=== PATIENT | female | born 1970 | race Caucasian/White ===

== ENCOUNTER 2017-06-10 19:35 | Emergency (ER) | payer MEDICAID ==
[~2017-06-10] VITALS: Ht 162.6 cm; Wt 73.5 kg
[2017-06-10] MEDS ORDERED: HYDROmorphone HCL 2 MG/ML VL IV ONE (20:45)
[2017-06-10] MEDS ORDERED: ONDANSETRON HCL 4 MG/2 ML VIAL IV ONE (20:45)
[2017-06-10 22:23] VITALS: BP 138/91
[2017-06-10] MEDS ORDERED: HYDROcodone-ACET 10/325MG TAB PO ONE (23:45)
== END 2017-06-10 23:57 | disposition home or self-care (01) ==
LOC: EDBD 19:35 → ER 19:35
DX: S52.571A Other intraarticular fracture of lower end of right radius, initial encounter for closed fracture (principal); W19.XXXA Unspecified fall, initial encounter; Y93.21 Activity, ice skating; Y92.89 Other specified places as the place of occurrence of the external cause; Y99.8 Other external cause status
CPT/HCPCS: 29125; 73110; 96374; 96375; 99284; J1170; J2405; J7030

== ENCOUNTER → 2020-03-14 | Outpatient (CLI) | payer OTHER | END | disposition home or self-care (01) | LOC: LAB 10:50 | PROVIDERS: ATTEND Preventive Medicine Preventive Medicine/Occupational Environmental Medicine | DX: Z02.1 Encounter for pre-employment examination (principal) | CPT/HCPCS: 36415; 86706; 86735; 86762; 86765; 86787 ==

== ENCOUNTER 2022-07-17 18:14 | Emergency (ER) | payer MEDICAID ==
[~2022-07-17] VITALS: Ht 162.6 cm; Wt 78.5 kg
[2022-07-17] MEDS ORDERED: cloNIDine 0.2 mg/24hr 7DAY PATCH TD ONE (20:45)
[2022-07-17 21:01] LABS: Basophils # (auto) 0.2 10 ^3/uL (0-0.2); Basophils % (auto) 1.3 % (0.0-2.0); Eosinophils # (auto) 0.1 10 ^3/uL (0-0.8); Eosinophils % (auto) 0.6 % (0.0-7.0); Hematocrit 42.7 % (36.0-46.0); Hemoglobin 14.6 g/dL (12.2-16.2); Lymphocytes # (auto) 3.8 10 ^3/uL (0.4-5.4); Lymphocytes % (auto) 30.3 % (10.0-50.0); Mean Corpuscular Hemoglobin 31.2 pg (28.0-32.0); Mean Corpuscular Hgb Conc. 34.1 g/dL (32.0-36.0); Mean Corpuscular Volume 91.5 fL (80.0-100.0); Monocytes # (auto) 1.2 10 ^3/uL (0-1.3); Monocytes % (auto) 9.2 % (0.0-12.0); Neutrophils # (auto) 7.4 10 ^3/uL (1.6-8.6); Neutrophils % (auto) 58.6 % (37.0-80.0); Nucleated Red Blood Cells % 0.2 %; Red Blood Cells 4.67 10^6/uL (4.0-5.20); Red Cell Distribution Width 13.5 % (11.8-14.3); White Blood Cell 12.6 10^3/uL (4.4-10.8)
[2022-07-17 21:21] LABS: Albumin 4.3 g/dL (3.4-5.0); Potassium 3.5 mmol/L (3.5-5.1)
[2022-07-17 21:25] LABS: Total Protein 8.2 g/dL (6.4-8.2)
[2022-07-17 21:30] LABS: Urine Bacteria NONE SEEN /hpf (None Seen); Urine Blood Negative /uL (Negative); Urine Specific Gravity 1.002 (1.001-1.035); Urine WBC 1 /hpf (0 - 5)
[2022-07-17 22:15] VITALS: BP 154/91
[2022-07-17] MEDS ORDERED: CLON0.1T PO (22:20)
== END 2022-07-17 22:41 | disposition home or self-care (01) ==
LOC: ER 18:14
DX: I10 Essential (primary) hypertension (principal); Z87.891 Personal history of nicotine dependence; Z88.2 Allergy status to sulfonamides
CPT/HCPCS: 36415; 80053; 81001; 85025; 93005

== ENCOUNTER 2024-03-27 06:51 | Day surgery (SDC) | payer MEDICAID ==
[~2024-03-27] VITALS: Ht 162.6 cm; Wt 61.2 kg
[2024-03-27] VITALS (9 sets, daily range): BP systolic 122–143; BP diastolic 82–95; PULSE 60–76; RESP 12–17; TEMP 98; O2SAT 94–100
[~2024-03-27 06:51] MED LIST: ADAL40KI SC; CETI-195 PO; HYDRX10T PO; IBUP-1456 PO; LAMO100T44 PO; TRAZ-228 PO
[2024-03-27] MEDS ORDERED: fentaNYL CITRATE 100 MCG/2 ML VL IV ONE ×2 (07:45→08:15)
[2024-03-27] MEDS ORDERED: MIDAZOLAM HCL 2MG/2ML 2ml VIAL (1mg/ml) IV ONE ×2 (07:45→08:15)
[2024-03-27] MEDS ORDERED: LIDOCAINE VISCOUS 2% 15ML UD PO ONE ×2 (07:45→08:15)
[2024-03-27] MEDS ORDERED: MIDAZOLAM HCL 2MG/2ML 2ml VIAL (1mg/ml) ONE (08:23)
== END 2024-03-27 09:45 | disposition home or self-care (01) ==
LOC: CATH 06:51
PROVIDERS: ATTEND Internal Medicine Cardiovascular Disease
DX: Q23.81 Bicuspid aortic valve (principal); I08.1 Rheumatic disorders of both mitral and tricuspid valves; Z88.2 Allergy status to sulfonamides; Z88.8 Allergy status to other drugs, medicaments and biological substances; I10 Essential (primary) hypertension; E78.5 Hyperlipidemia, unspecified; Z98.890 Other specified postprocedural states
CPT/HCPCS: 93312; J2250; J3010; J7030; 99152

== ENCOUNTER → 2024-04-02 | Outpatient (CLI) | payer MEDICAID ==
[~2024-04-02] MED LIST changes: +ALBUTEROL SULF 2.5 MG/0.5ML(0.5%) NEB SOLN ONE
--- NOTE | 2024-04-03 16:40 | DVHNC2 ---
Procedure - No obstructive or restrictive ventilatory defect. No significant post-bronchodilator improvement. Noted 120 mL improvement on FEV1. Normal total lung capacity (4.58 L, 93%). Normal DLCO (106%), not correlated with patient's hemoglobin. Decreased RV/TLC ratio (42%). CRYSTAL POTTER MD Apr 03, 2024 16:40
== END | disposition home or self-care (01) ==
LOC: RT 08:42
PROVIDERS: ATTEND Internal Medicine Pulmonary Disease
DX: R06.00 Dyspnea, unspecified (principal); F17.210 Nicotine dependence, cigarettes, uncomplicated
CPT/HCPCS: 94060; 94727; 94729

== ENCOUNTER 2024-05-07 06:44 | Emergency (ER) | payer MEDICAID ==
[~2024-05-07] VITALS: Ht 162.6 cm; Wt 60.6 kg
[~2024-05-07 06:44] MED LIST changes: -ALBUTEROL SULF 2.5 MG/0.5ML(0.5%) NEB SOLN ONE
--- NOTE | 2024-05-07 07:01 | ED.PDOC ---
History of Present Illness HPI Comments 54-year-old female presents with a chief complaint of left-sided facial droop since Tuesday (05/05/2024). Patient mentions that this feels similar to the last time that she had Weatherly Palsy x 20 years ago. Patient has a droop to the upper and lower part of her left face. Patient is able to speak in complete sentences and has no deficits in her upper or lower extremities. No other symptoms or modifying factors present at this time. Chief Complaint: Left Sided Weakness Time Seen by MD: 06:55 Reviewed Notes: Medications, Allergies Allergies: Coded Allergies: Sulfa Antibiotics (Verified Allergy, Unknown, 03/23/24) Uncoded Allergies: STEROIDS (Allergy, Unknown, TACHYCARDIA, 03/23/24) Home Meds Reported Medications Cetirizine HCl (Allergy) 10 Mg Tab, 10 MG PO PRN for ALLERGIES, TAB 03/23/24 Adalimumab (Humira) 40 Mg/0.8 Ml Kit, 40 MG SC EVERY OTHER TUESDAY for PSORIASIS, KIT 03/23/24 Hydroxyzine Hcl (Vistaril) 10 Mg Tb, 10 MG PO PRN for ANXIETY, TAB 03/23/24 Ibuprofen (Ibuprofen) 800 Mg Tab, 800 MG PO PRN for ARTHRITIS, MG 03/23/24 Lamotrigine (Lamotrigine) 100 Mg Tab, 1 TAB PO QPM for BIPOLAR DISORDER, #60 TAB 03/23/24 Trazodone Hcl (Trazodone Hcl) 100 Mg Tab, 100 MG PO QPM for INSOMNIA, MG 03/23/24 Information Source: Patient Mode of Arrival: Ambulatory Severity: Moderate Timing: Days Duration: Since onset Prehospital treatment: None Past Medical History PAST MEDICAL HISTORY: Cancer, Liver Surgical History: Denies all surgeries NOC ENGINEER History: No Pertinent NOC ENGINEER History Family History Family History: Unknown, Family hx of DM, Family hx of HTN Family History (Other): hyperlipidemia Social History Smoker: Non-Smoker, Quit Greater Than 1 Year Alcohol: Denies ETOH Use Drugs: Denies Drug Use, Marijuana Lives In: Home Constitutional: denies: chills, diaphoresis, fatigue, fever, malaise, sweats, weakness, others EENTM: denies: blurred vision, double vision, ear bleeding, ear discharge, ear drainage, ear pain, ear ringing, eye pain, eye redness, hearing loss, mouth pain, mouth swelling, nasal discharge, nose bleeding, nose congestion, nose pain, photophobia, tearing, throat pain, throat swelling, voice changes, others Respiratory: denies: cough, hemoptysis, orthopnea, SOB at rest, shortness of breath, SOB with excertion, stridor, wheezing, others Cardiovascular: denies: chest pain, dizzy spells, diaphoresis, Dyspnea on exertion, edema, irregular heart beat, left arm pain, lightheadedness, palpitations, PND, syncope, others Gastrointestinal: denies: abdomen distended, abdominal pain, blood streaked bowels, constipated, diarrhea, dysphagia, difficulty swallowing, hematemesis, melena, nausea, poor appetite, poor fluid intake, rectal bleeding, rectal pain, vomiting, others Genitourinary: denies: abnormal vagina bleeding, burning, dyspareunia, dysuria, flank pain, frequency, hematuria, incontinence, pain, , vagina discharge, urgency, others Neurological: reports: left sided weakness (LOWER AND UPPER FACIAL DROOP) Physical Exam General Appearance: No Apparent Distress, Normal HEENT: Normal ENT Inspection, Pharynx Normal, TMs Normal Neck: Full Range of Motion, Non-Tender, Normal, Normal Inspection Respiratory: Chest Non-Tender, Lungs Clear, No Accessory Muscle Use, No Respiratory Distress, Normal Breath Sounds Cardiovascular: No Edema, No JVD, No Murmur, No Gallop, Normal Peripheral Pulses, Regular Rate/Rhythm Breast Exam: Deferred Gastrointestinal: No Organomegaly, Non Tender, No Pulsatile Mass, Normal Bowel Sounds, Soft Genitalia: Deferred Pelvic: Deferred Rectal: Deferred Extremities: No calf tenderness, Normal capillary refill, Normal inspection, Normal range of motion, Non-tender, No pedal edema Neurologic: Facial Droop (LEFT UPPER AND LOWER DROOP) Cerebellar Function: Normal Reflexes: Normal Skin: Dry, Normal Color, Warm Lymphatic: No Adenopathy Was a procedure done? 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 Will discharge with steroids, valtrex, and ophtho follow up.) Impression: Primary Impression: Perez's palsy Disposition: HOME / SELF CARE / HOMELESS Condition: Stable Additional Instructions: You have bells palsy. You were prescribed steroids and antivirals. Please take as directed. You should use artificial tears to keep you eye moist and you can tape it shut at night. You should follow up with an Museum Informatics Specialist this week to ensure you are doing well. If your symptoms worsen or you have any other concerns then please return to the ER. e-Prescriptions Valacyclovir Hcl (Valtrex) 1 Gm Tab 1 TAB PO TID for 7 Days, #21 TAB Prov: ADA LEAHY MD 05/07/24 Prednisone (Prednisone) 20 Mg Tab 60 MG PO DAILY for 7 Days, #21 MG Prov: ADA LEAHY MD 05/07/24 Discharged With: Self Critical Care Note Critical Care Time?: No Stability Stability form required: No I personally scribed for ADA LEAHY MD ([email or web address]) on 05/07/24 at 07:01. Electronically submitted by Barry Contreras ([email or web address]). ADA LEAHY MD May 07, 2024 07:01
[2024-05-07] MEDS ORDERED: PRED20TA2 PO (07:08)
[2024-05-07] MEDS ORDERED: VALA1TAB PO (07:08)
[2024-05-07] MEDS: ACYCLOVIR 400 MG TAB PO ONE (07:11)
[2024-05-07] MEDS: predniSONE 20 MG TAB PO ONE (07:12)
[2024-05-07 07:19] VITALS: BP 125/78; PULSE 77; RESP 16; TEMP 98; O2SAT 97
== END 2024-05-07 07:20 | disposition home or self-care (01) ==
LOC: EEVIPCON 06:44 → ER 06:44
DX: G51.0 Bell's palsy (principal); Z88.2 Allergy status to sulfonamides; Z87.891 Personal history of nicotine dependence
CPT/HCPCS: 99283; J7512

== ENCOUNTER → 2024-10-08 | Outpatient (CLI) | payer BC ==
[~2024-10-08] MED LIST changes: +PRED20TA2 PO; +VALA1TAB PO
== END | disposition home or self-care (01) ==
LOC: LAB 12:28
PROVIDERS: ATTEND Nurse Practitioner
DX: J30.2 Other seasonal allergic rhinitis (principal)
CPT/HCPCS: 82785; 86003

== ENCOUNTER 2025-04-04 09:05 | Emergency (ER) | payer BC ==
[~2025-04-04] VITALS: Ht 162.6 cm; Wt 67.3 kg
--- NOTE | 2025-04-04 09:35 | ED.PDOC ---
GI ASSESSMENT HPI Comments A 55 YEAR OLD FEMALE PRESENTS TO THE ED WITH COMPLAINT OF NAUSEA AND VOMITING. PATIENT STATES SHE HAS BEEN EXPERIENCING NAUSEA AND VOMITING WITH A HEADACHE FOR THE PAST 2 DAYS AND HAS BEEN UNABLE TO HOLD ANYTHING DOWN A RESULT. THE PATIENT NOTES THAT SHE HAS A HISTORY OF MIGRAINE HEADACHES. PATIENT DENIES VISION CHANGES, SLURRED SPEECH, ONE-SIDED WEAKNESS, FACIAL DROOP, DYSURIA, HEMATURIA, FLANK PAIN, FEVER, CHILLS, SHORTNESS OF BREATH, CHEST PAIN, ABDOMINAL PAIN, OR OTHER COMPLAINTS. NO OTHER SYMPTOMS OR MODIFYING FACTORS AT THIS TIME. PATIENT IS ALERT, ORIENTED X 4, AND HAS STEADY GAIT. Chief Complaint: Nausea/Vomiting Time Seen by MD: 09:15 Primary Care Provider: Bonita Reviewed Notes: Nurses Notes, Medications, Allergies Allergies: Coded Allergies: Sulfa Antibiotics (Verified Allergy, Unknown, 03/23/24) Uncoded Allergies: STEROIDS (Allergy, Unknown, TACHYCARDIA, 03/23/24) Home Meds Active Scripts Sumatriptan Succinate (Imitrex) 50 Mg Tab, 1 TAB PO BID, #30 TAB 1 Refill Prov:CHANTAL RANDLE 04/04/25 Ondansetron Odt 4MG Tab (ZOFRAN PO) 4 Mg Tb, 4 MG PO BID, #30 TAB ODT TAB-DISSOLVE IN MOUTH, THEN SWALLOW Prov:CHANTAL RANDLE 04/04/25 Valacyclovir Hcl (Valtrex) 1 Gm Tab, 1 TAB PO TID for 7 Days, #21 TAB Prov:ADA LEAHY MD 05/07/24 Prednisone (Prednisone) 20 Mg Tab, 60 MG PO DAILY for 7 Days, #21 MG Prov:ADA LEAHY MD 05/07/24 Reported Medications Cetirizine HCl (Allergy) 10 Mg Tab, 10 MG PO PRN for ALLERGIES, TAB 03/23/24 Adalimumab (Humira) 40 Mg/0.8 Ml Kit, 40 MG SC EVERY OTHER TUESDAY for PSORIASIS, KIT 03/23/24 Hydroxyzine Hcl (Vistaril) 10 Mg Tb, 10 MG PO PRN for ANXIETY, TAB 03/23/24 Ibuprofen (Ibuprofen) 800 Mg Tab, 800 MG PO PRN for ARTHRITIS, MG 03/23/24 Lamotrigine (Lamotrigine) 100 Mg Tab, 1 TAB PO QPM for BIPOLAR DISORDER, #60 TAB 03/23/24 Trazodone Hcl (Trazodone Hcl) 100 Mg Tab, 100 MG PO QPM for INSOMNIA, MG 03/23/24 Information Source: Patient Mode of Arrival: Ambulatory Timing: Days Duration: Since onset, Days Prehospital treatment: None Quality: None Vomitus: Food Particles Stool: Normal Severity: Moderate Recent Hx of: None Pain Location: None Modifying Factors: Nothing Associated sign and symptoms: Nausea, Vomiting Past Medical History PAST MEDICAL HISTORY: Cancer, Liver Past Medical History (Other): MIGRAINE HEADACHE Surgical History: Denies all surgeries LEAD CAREGIVER History: No Pertinent LEAD CAREGIVER History Family History Family History: Reviewed,noncontributory to illness, Family hx of DM, Family hx of HTN Family History (Other): hyperlipidemia Social History Smoker: Non-Smoker, Quit Greater Than 1 Year Alcohol: Denies ETOH Use Drugs: Denies Drug Use, Marijuana Lives In: Home Constitutional: reports: others (ANXIOUS ); denies: chills, diaphoresis, fatigue, fever, malaise, sweats, weakness EENTM: denies: blurred vision, double vision, ear bleeding, ear discharge, ear drainage, ear pain, ear ringing, eye pain, eye redness, hearing loss, mouth pain, mouth swelling, nasal discharge, nose bleeding, nose congestion, nose pain, photophobia, tearing, throat pain, throat swelling, voice changes, others Respiratory: denies: cough, hemoptysis, orthopnea, SOB at rest, shortness of breath, SOB with excertion, stridor, wheezing, others Cardiovascular: denies: chest pain, dizzy spells, diaphoresis, Dyspnea on exertion, edema, irregular heart beat, left arm pain, lightheadedness, palpitations, PND, syncope, others Gastrointestinal: reports: nausea, vomiting; denies: abdomen distended, abdominal pain, blood streaked bowels, constipated, diarrhea, dysphagia, difficulty swallowing, hematemesis, melena, poor appetite, poor fluid intake, re ctal bleeding, rectal pain, others Genitourinary: denies: abnormal vagina bleeding, burning, dyspareunia, dysuria, flank pain, frequency, hematuria, incontinence, pain, , vagina discharge, urgency, others Neurological: denies: dizziness, fainting, headache, left sided numbness, left sided weakness, numbness, paresthesia, pre-existing deficit, right sided numbness, right sided weakness, seizure, speech problems, tingling, tremors, weakness, others Musculoskeletal: denies: back pain, gout, joint pain, joint swelling, muscle pain, muscle stiffness, neck pain, others Integumetry: denies: bruises, change in color, change in hair/nails, dryness, laceration, lesions, lumps, rash, wounds, others Allergic/Immunocompromised: denies: Difficulty Healing, Frequent Infections, Hives, Itching, others Hematologic/Lymphatic: denies: anemia, blood clots, easy bleeding, easy bruising, swollen glands, others Endocrine: denies: excessive hunger, excessive sweating, excessive thirst, excessive urination, flushing, intolerance to cold, intolerance to heat, unexplained weight gain, unexplained weight loss, others Psychiatric: denies: anxiety, bipolar disorder, depression, hopeless, panic disorder, schizophrenia, sleepless, suicidal, others All Other Systems: Reviewed and Negative Physical Exam General Appearance: Mild Distress, Normal, Other (ANXIOUS ) HEENT: Normal ENT Inspection, PERRL/EOMI, Pharynx Normal, TMs Normal Neck: Full Range of Motion, Non-Tender, Normal, Normal Inspection Respiratory: Chest Non-Tender, Lungs Clear, No Accessory Muscle Use, No Respiratory Distress, Normal Breath Sounds Cardiovascular: No Edema, No JVD, No Murmur, No Gallop, Normal Peripheral Pulses, Regular Rate/Rhythm Breast Exam: Deferred Gastrointestinal: No Organomegaly, Non Tender, No Pulsatile Mass, Normal Bowel Sounds, Soft Genitalia: Deferred Pelvic: Deferred Rectal: Deferred Extremities: No calf tenderness, Normal capillary refill, Normal inspection, Normal range of motion, Non-tender, No pedal edema Musculoskeletal : Apperance: Normal Neurologic: Alert, dimension quarry supervisor II-XII nml as Tested, No Motor Deficits, Normal Affect, Normal Mood, No Sensory Deficits Cerebellar Function: Normal Reflexes: Normal Skin: Dry, Normal Color, Warm Peripheral Pulses: 2+ carotid (R), 2+ carotid (L) Lymphatic: No Adenopathy Was a procedure done? Was a procedure done?: No GI differential Dx Differential Diagnosis: Gastritis/PUD, UTI, Dehydration, Food Poisoning, Viral X-Ray, Labs, Meds, VS Vital Signs Date Time Temp Pulse Resp B/P (MAP) Pulse Ox O2 Delivery O2 Flow Rate FiO2 04/04/25 11:48 67 18 99 Room Air 04/04/25 11:48 97.7 67 18 147/95 (112) 99 97.7 04/04/25 09:08 98.9 81 18 149/99 98 98.9 Lab Test 04/04/25 11:00 04/04/25 09:27 Range/Units Urine Color Pending Urine Clarity Pending Urine pH Pending Urine Specific [place] Pending Urine Protein Pending Urine Ketones Pending Urine Blood Pending Urine Nitrite Pending Urine Bilirubin Pending Urine Urobilinogen Pending Urine Leukocyte Esterase Pending Urine RBC Pending Urine Microscopic WBC Pending Urine Squamous Epithelial Cells Pending Urine Bacteria Pending Urine Glucose Pending White Blood Count 8.7 4.4-10.8 10^3/uL Red Blood Count 4.58 4.0-5.20 10^6/uL Hemoglobin 14.7 12.2-16.2 g/dL Hematocrit 43.0 36.0-46.0 % Mean Corpuscular Volume 93.7 80.0-100.0 fL Mean Corpuscular Hemoglobin 32.0 28.0-32.0 pg Mean Corpuscular Hemoglobin Concent 34.2 32.0-36.0 g/dL Red Cell Distribution Width 13.6 11.8-14.3 % Platelet Count 314 140-450 10^3/uL Mean Platelet Volume 8.4 6.9-10.8 fL Neutrophils (%) (Auto) 65.5 37.0-80.0 % Lymphocytes (%) (Auto) 23.2 10.0-50.0 % Monocytes (%) (Auto) 10.0 0.0-12.0 % Eosinophils (%) (Auto) 0.1 0.0-7.0 % Basophils (%) (Auto) 1.2 0.0-2.0 % Neutrophils # (Auto) 5.7 1.6-8.6 10 ^3/uL Lymphocytes # (Auto) 2.0 0.4-5.4 10 ^3/uL Monocytes # (Auto) 0.9 0-1.3 10 ^3/uL Eosinophils # (Auto) 0 0-0.8 10 ^3/uL Basophils # (Auto) 0.1 0-0.2 10 ^3/uL Nucleated Red Blood Cells 0.0 % Sodium Level 137 136-145 mmol/L Potassium Level 3.4 L 3.5-5.1 mmol/L Chloride Level 98 98-107 mmol/L Carbon Dioxide Level 28 20-31 mmol/L Anion Gap 11 5-15 Blood Urea Nitrogen 13 9-23 mg/dL Creatinine 0.90 0.550-1.02 mg/dL Glomerular Filtration Rate Calc 75 >90 mL/min BUN/Creatinine Ratio 14.4 10.0-20.0 Serum Glucose 93 74-106 mg/dL Calcium Level 9.6 8.7-10.4 mg/dL Current Medications Medications (Trade) Dose Ordered Sig/Jose A Route Start Time Stop Time Status Last Admin Sodium Chloride 1,000 ml @ 1,000 mls/hr Q1H ONCE IV 04/04/25 09:30 04/04/25 10:29 DC 04/04/25 09:46 X-Ray, Labs, Meds, VS Comment EXTERNAL MEDICAL RECORDS REVIEWED: [NONE] INDEPENDENT HISTORIANS: [NONE] SOCIAL DETERMINANTS OF HEALTH: [NONE] LABS ORDERED: CBC, BMP, UA REVIEWED AND INTERPRETED RESULTS: NORMAL IMAGING ORDERED: NONE TREATMENTS ORDERED: NS 1 L IV, ZOFRAN 4 MG IV, TORADOL 30 MG IV PROCEDURES PERFORMED: NONE CRITICAL CARE TIME: NONE I HAVE DISCUSSED THE PATIENT WITH THE ATTENDING PHYSICIAN DR. DEWITT AND HE AGREES WITH THE PATIENT'S PLAN OF CARE AND DISPOSITION. BASED ON HISTORY OF PRESENT ILLNESS, AND PHYSICAL EXAM, PATIENT WILL BE DISCHARGED HOME. DISCUSSED PLAN FOR DISCHARGE HOME WITH RX [ZOFRAN 4 MG AND IMITREX 50 MG]. MEDICATION WARNINGS GIVEN. SHARED DECISION MAKING: DISCUSSED WITH PATIENT THAT THEIR WORKUP WAS NORMAL. PATIENT INSTRUCTED TO FOLLOW UP WITH PRIMARY CARE PROVIDER IN 1-2 DAYS FOR RE- EVALUATION OF SYMPTOMS. PATIENT VERBALIZES UNDERSTANDING TO RETURN TO ED FOR NEW OR WORSENING SYMPTOMS OR IF FOLLOW UP WITH PCP CANNOT BE OBTAINED. PATIENT FEELS COMFORTABLE GOING HOME AT THIS TIME. ALL QUESTIONS ADDRESSED AT TIME OF DISCHARGE. Time of 1ST Reevaluation: 11:58 Reevaluation 1ST: Improved Patient Education/Counseling: Diagnosis, Treatment, Need For Follow Up Family Education/Counseling: Diagnosis, Treatment, Need For Follow Up Medical Screening: No EMC Exist At This Time SEPSIS Sepsis Screen Date sepsis recognized/suspect: Apr 04, 2025 Time Sepsis recognized/suspect: 0909 Recent Procedure: No On Antibiotic Therapy: No Respiratory Rate >20: No Heart Rate >90: No Temp<36 C (96.8 F) or >38.3 C: No SBP <90 or MAP <65 mmHG: No New Acute Mental Status Change: No Is the patient on CPAP, BIPAP,: No Physician Orders Urinalysis (04/04/25 09:21) He[place]ock Iv (04/04/25 09:21) Vital Signs Date Time Temp Pulse Resp B/P (MAP) Pulse Ox O2 Delivery O2 Flow Rate FiO2 04/04/25 11:48 67 18 99 Room Air 04/04/25 11:48 97.7 67 18 147/95 (112) 99 97.7 04/04/25 09:08 98.9 81 18 149/99 98 98.9 Laboratory Tests Test 04/04/25 09:27 White Blood Count 8.7 10^3/uL (4.4-10.8) Medications Medications Dose Ordered Sig/Jose A Route Start Time Stop Time Status Last Admin Dose Admin Sodium Chloride 1,000 ml @ 1,000 mls/hr Q1H ONCE IV 04/04/25 09:30 04/04/25 10:29 DC 04/04/25 09:46 Departure 1 Departure Time of Disposition: 12:00 Impression: Primary Impression: Nausea and vomiting Qualified Codes: R11.2 - Nausea with vomiting, unspecified Additional Impression: Migraine headache without aura Qualified Codes: G43.009 - Migraine without aura, not intractable, without status migrainosus Disposition: 01 HOME / SELF CARE / HOMELESS Condition: Stable Additional Instructions: FOLLOW-UP WITH PCP IN 1 TO 2 DAYS. TAKE MEDICATIONS PRESCRIBED. RETURN TO ED FOR ANY NEW OR WORSENING SYMPTOMS. e-Prescriptions Sumatriptan Succinate (Imitrex) 50 Mg Tab 1 TAB PO BID, #30 TAB 1 Refill Prov: CHANTAL RANDLE 04/04/25 Ondansetron Odt 4MG Tab (ZOFRAN PO) 4 Mg Tb 4 MG PO BID, #30 TAB ODT TAB-DISSOLVE IN MOUTH, THEN SWALLOW Prov: CHANTAL RANDLE 04/04/25 Discharged With: Self Critical Care Note Critical Care Time?: No Stability Stability form required: No I personally scribed for CHANTAL RANDLE ([email or web address]) on 04/04/25 at 09:35. Electronically submitted by Alonso Kellogg ([email or web address]). I personally scribed for CHANTAL RANDLE ([email or web address]) on 04/04/25 at 11:41. Electronically submitted by Alonso Kellogg ([email or web address]). CHANTAL RANDLE Apr 04, 2025 09:35
[2025-04-04 09:41] LABS: Hematocrit 43.0 % (36.0-46.0); Hemoglobin 14.7 g/dL (12.2-16.2); Mean Corpuscular Hemoglobin 32.0 pg (28.0-32.0); Mean Corpuscular Volume 93.7 fL (80.0-100.0); Nucleated Red Blood Cells % 0.0 %
[2025-04-04] MEDS: SODIUM CHLORIDE 0.9% 1,000 ML IV ONE (09:46)
[2025-04-04] MEDS: ONDANSETRON HCL 4 MG/2 ML VIAL IV ONE (09:51)
[2025-04-04 09:52] LABS: Sodium 137 mmol/L (136-145)
[2025-04-04 09:53] LABS: Anion Gap 11 (5-15); Calcium 9.6 mg/dL (8.7-10.4); Carbon Dioxide 28 mmol/L (20-31)
[2025-04-04 09:57] LABS: Chloride 98 mmol/L (98-107); Potassium 3.4 mmol/L (3.5-5.1)
[2025-04-04 09:58] LABS: BUN/Creatinine Ratio 14.4 (10.0-20.0); Blood Urea Nitrogen 13 mg/dL (9-23); Glucose 93 mg/dL (74-106)
[2025-04-04] MEDS: KETOROLAC TROMETH 30 MG/ML 1ML VIAL IV ONE (10:40)
[2025-04-04] MEDS ORDERED: SUMA50TA2 PO (11:41)
[2025-04-04] MEDS ORDERED: ZOFR4T PO (11:41)
[2025-04-04 11:48] VITALS: BP 147/95; PULSE 67; RESP 18; TEMP 97.7; O2SAT 99
[2025-04-04 12:03] LABS: Urine Protein, UAD TRACE (Negative)
== END 2025-04-04 11:51 | disposition home or self-care (01) ==
LOC: ER 09:05 → EEVIPCON 09:05 → ER 11:51
DX: G43.009 Migraine without aura, not intractable, without status migrainosus (principal); R11.2 Nausea with vomiting, unspecified; Z79.899 Other long term (current) drug therapy; Z88.2 Allergy status to sulfonamides; Z85.05 Personal history of malignant neoplasm of liver; Z79.624 Long term (current) use of inhibitors of nucleotide synthesis; Z79.52 Long term (current) use of systemic steroids
CPT/HCPCS: 36415; 80048; 81001; 85025; 96361; 96374; 96375; 99284; J1885; J2405; J7030; 96360